=== PATIENT | female | born 1965 | race Caucasian/White ===

== ENCOUNTER 2016-04-29 13:50 | Emergency (ER) | payer MEDICAID ==
--- NOTE | 2016-04-29 14:10 | ER Document Report ---
ED Medical Screen (RME) - General Stated Complaint: HIP, LEG, FEET PAIN Notes: 50 yo female c/o chronic hip pain x several years, increased pain recently due to prolonged walking. new job, works in housekeeping at [employer]. no fever. no bowel/bladder change. burning sensation to bilat greater trochanter TRAVEL OUTSIDE OF THE [place] IN LAST 30 DAYS: No - Related Data Allergies/Adverse Reactions: No Known Allergies Allergy (Verified 04/29/16 14:07) Past Medical History Psychiatric Medical History: Reports: Hx Bipolar Disorder Physical Exam - Vital signs Vitals: Temp Pulse Resp BP Pulse Ox 98.0 F 81 14 99/59 L 99 04/29/16 13:55 04/29/16 13:55 04/29/16 13:55 04/29/16 13:55 04/29/16 13:55 Course - Vital Signs Vital signs: Temp Pulse Resp BP Pulse Ox 98.0 F 81 14 99/59 L 99 04/29/16 13:55 04/29/16 13:55 04/29/16 13:55 04/29/16 13:55 04/29/16 13:55
--- NOTE | 2016-04-29 15:35 | ER Document Report ---
HPI - HPI Patient complains to provider of: chronic hip pain Onset: Other - 6 years Onset/Duration: Persistent Quality of pain: Achy Severity: Severe Pain Level: 4 Context: Patient presents to the emergency department with complaints of bilateral hip pain. Patient reports she's had hip pain for over 6 years. She reports she's been evaluated by her primary care provider for this physician in the past. She reports she's been to physical therapy for the pain. She denies trauma. She reports she recently started working at the [employer] approximately one month ago. She reports her hips are hurting from all the walking. She walks from the parking lot into the hospital, works and walks back to her car. She denies other symptoms such as fever vomiting diarrhea. She denies pain with void. She reports she had to leave work today because she was hurting so bad. Patient ambulating around the emergency department without a limp without problems. She tried to get an appointment with her primary care today but was unable to obtain one. She does have an appointment scheduled May 04. Associated Symptoms: None Exacerbated by: Walking Relieved by: Denies Similar symptoms previously: Yes Recently seen / treated by doctor: No - CARDIOVASCULAR Cardiovascular: DENIES: Chest pain - REPRODUCTIVE LMP: hysterectomy - DERM Skin Color: Normal Past Medical History - General Information source: Patient - Social History Smoking Status: Current Every Day Smoker Chew tobacco use (# tins/day): Yes - 1ppd Frequency of alcohol use: None Drug Abuse: None Lives with: Family Family History: CAD, CVA, Hypertension Patient has suicidal ideation: No Patient has homicidal ideation: No - Medical History Medical History: Negative Renal/ Medical History: Denies: Hx Peritoneal Dialysis Psychiatric Medical History: Reports: Hx Bipolar Disorder Past Surgical History: Reports: Hx Section - Immunizations Hx Diphtheria, Pertussis, Tetanus Vaccination: Yes Vertical Provider Document - CONSTITUTIONAL Agree With Documented VS: Yes Exam Limitations: No Limitations General Appearance: WD/WN, No Apparent Distress - INFECTION CONTROL TRAVEL OUTSIDE OF THE [place] IN LAST 30 DAYS: No - HEENT HEENT: Atraumatic, Normocephalic - NECK Neck: Normal Inspection, Supple. negative: Lymphadenopathy-Left, Lymphadenopathy-Right - RESPIRATORY Respiratory: Breath Sounds Normal, No Respiratory Distress O2 Sat by Pulse Oximetry: 99 - CARDIOVASCULAR Cardiovascular: Regular Rate - GI/ABDOMEN Gastrointestinal: Abdomen Soft, Abdomen Non-Tender - MUSCULOSKELETAL/EXTREMETIES Musculoskeletal/Extremeties: MAEW, FROM, Tender - bilateral hip pain, ambulates without limp without wincing, FROM - NEURO Level of Consciousness: Awake, Alert, Appropriate Motor/Sensory: No Motor Deficit - DERM Integumentary: Warm, Dry Adult Front & Back Diagram: 1 - C/O ACHY Course - Re-evaluation Re-evalutation: 04/29/16 Patient does have a primary care provider in an appointment with them on May 04. She was instructed on the importance of follow-up to discuss chronic pain and chronic pain control. Patient was also instructed on yoga AND other different ways to take care of chronic pain she verbalizes to - Vital Signs Vital signs: Temp Pulse Resp BP Pulse Ox 98.0 F 81 14 99/59 L 99 04/29/16 13:55 04/29/16 13:55 04/29/16 13:55 04/29/16 13:55 04/29/16 13:55 Discharge - Discharge Clinical Impression: chronic bilateral hip pain Condition: Stable Disposition: HOME, SELF-CARE Instructions: Anti-Inflammatory Medication ([facility]) Additional Instructions: *You have been evaluated for chronic bilateral hip pain *Take medication as prescribed *Follow up with your primary care provider as scheduled *Return to ED for worsening condition, changes, needs Prescriptions: Naproxen 500 mg PO BID #20 tablet Forms: Return to Work Referrals: RYLAND COLLINS MD [Primary Care Provider] - Follow up as needed
[2016-04-29 15:45] VITALS: BP 112/59
== END 2016-04-29 15:50 | disposition home or self-care (01) ==
LOC: ER 13:50
DX: G89.29 Other chronic pain (principal); M25.552 Pain in left hip; M25.551 Pain in right hip; F17.210 Nicotine dependence, cigarettes, uncomplicated
CPT/HCPCS: 99283

== ENCOUNTER → 2016-09-17 | Outpatient (CLI) | payer OTHER, MEDICAID ==
--- NOTE | 2016-09-17 13:47 | RADIOLOGY REPORT (SQ) ---
EXAM DESCRIPTION: LUMBAR SPINE COMPLETE COMPLETED DATE/TIME: 09/17/2016 11:05 am REASON FOR STUDY: RADICULOPATHY, LUMBAR REGION M54.16 RADICULOPATHY, LUMBAR REGION COMPARISON: Two-view chest 02/07/2016 NUMBER OF VIEWS: Five views including obliques. TECHNIQUE: AP, lateral, oblique, and sacral radiographic images acquired of the lumbar spine. LIMITATIONS: None. FINDINGS: MINERALIZATION: Osteopenic SEGMENTATION: Normal. No transitional anatomy. ALIGNMENT: Normal. VERTEBRAE: Maintained height. No fracture or worrisome bone lesion. DISCS: Preserved height. No significant osteophytes or end plate irregularity. POSTERIOR ELEMENTS: Pedicles and facets are intact. No pars defect or posterior arch defects. Mild bilateral facet arthropathy at L4-5 and L5-S1. HARDWARE: None in the spine. PARASPINAL SOFT TISSUES: Very heavily calcified abdominal aorta. Multiple calcified granulomata at b oth lung bases PELVIS: Intact as visualized. No fractures or worrisome bone lesions. SI joints intact. OTHER: No other significant finding. IMPRESSION: Lower lumbar facet arthropathy TECHNICAL DOCUMENTATION: JOB ID: [id number] [employer]- All Rights Reserved
== END ==
LOC: OD 10:48
PROVIDERS: ATTEND Family Medicine
DX: M54.16 Radiculopathy, lumbar region (principal)
CPT/HCPCS: 72110

== ENCOUNTER → 2016-10-19 | Outpatient (CLI) | payer OTHER, MEDICAID ==
--- NOTE | 2016-10-19 15:07 | RADIOLOGY REPORT (SQ) ---
EXAM DESCRIPTION: SOFT TISSUE NECK COMPLETED DATE/TIME: 10/19/2016 1:48 pm REASON FOR STUDY: NECK SWELLING COMPARISON: None. NUMBER OF VIEWS: Two views. TECHNIQUE: AP and lateral radiographic image of the soft tissues of the neck. LIMITATIONS: None. FINDINGS: EPIGLOTTIS: Normal. Contour normal. Aryepiglottic folds normal. PREVERTEBRAL SOFT TISSUES: Normal. No soft tissue swelling. SUBGLOTTIC AREA: Normal. No narrowing. RETROPHARYNGEAL SPACE: Normal. No soft tissue masses. BONY STRUCTURES: No significant findings. LUNG APICES: Normal. OTHER: No radiopaque foreign body. No other significant finding. IMPRESSION: NEGATIVE STUDY OF THE SOFT TISSUES OF THE NECK. TECHNICAL DOCUMENTATION: JOB ID: [id number] [employer]- All Rights Reserved
== END ==
LOC: OD 13:24
PROVIDERS: ATTEND Nurse Practitioner Acute Care
DX: R22.1 Localized swelling, mass and lump, neck (principal)
CPT/HCPCS: 70360

== ENCOUNTER → 2017-04-26 | Outpatient (CLI) | payer OTHER, MEDICAID ==
--- NOTE | 2017-04-26 11:06 | RADIOLOGY REPORT (SQ) ---
EXAM DESCRIPTION: CHEST PA/LATERAL COMPLETED DATE/TIME: 04/26/2017 9:56 am REASON FOR STUDY: COUGH COMPARISON: None. EXAM PARAMETERS: NUMBER OF VIEWS: two views TECHNIQUE: Digital Frontal and Lateral radiographic views of the chest acquired. RADIATION DOSE: NA LIMITATIONS: none FINDINGS: LUNGS AND PLEURA: Parenchymal opacity identified at the left lung base. Right lung is toño ar. Diffuse calcified granulomata. MEDIASTINUM AND HILAR STRUCTURES: No masses or contour abnormalities. HEART AND VASCULAR STRUCTURES: Heart normal size. No evidence for failure. BONES: No acute findings. HARDWARE: None in the chest. OTHER: No other significant finding. IMPRESSION: Left lower lobe pneumonia. Stable calcified granulomata. TECHNICAL DOCUMENTATION: JOB ID: [id number] [employer]- All Rights Reserved
== END ==
LOC: OD 09:38
PROVIDERS: ATTEND Family Medicine
DX: R05 Cough (principal)
CPT/HCPCS: 71046

== ENCOUNTER → 2019-06-22 | Outpatient (CLI) | payer OTHER ==
--- NOTE | 2019-06-22 11:33 | RADIOLOGY REPORT (SQ) ---
EXAM DESCRIPTION: HIPS BILATERAL IMAGES COMPLETED DATE/TIME: 06/22/2019 11:14 am REASON FOR STUDY: BILAT HIP PAIN M25.551 PAIN IN RIGHT HIP M25.552 PAIN IN LEFT HIP COMPARISON: None. NUMBER OF VIEWS: Two views TECHNIQUE: AP pelvis and additional frog-leg view of both hips. LIMITATIONS: None. FINDINGS: MINERALIZATION: Normal. HIPS: No acute fracture or dislocation. No worrisome bone lesions. PELVIS AND SACRUM: No acute fracture or dislocation. No worrisome bone lesions. PUBIS AND ISCHIUM: No acute fracture. LOWER LUMBAR SPINE: No significant findings as visualized. SOFT TISSUES: No findings. OTHER: No other significant finding. IMPRESSION: NEGATIVE STUDY OF THE PELVIS AND HIPS. TECHNICAL DOCUMENTATION: JOB ID: [id number] 2010 [employer]- All Rights Reserved Reading location - IP/workstation name: [email or web address]
== END ==
LOC: OD 10:57
PROVIDERS: ATTEND Family Medicine
DX: M25.551 Pain in right hip (principal); M25.552 Pain in left hip
CPT/HCPCS: 73522

== ENCOUNTER → 2019-10-03 | Outpatient (CLI) | payer OTHER ==
[2019-10-03 14:17] VITALS: BP 121/77
--- NOTE | 2019-10-03 14:17 | ER RDC ASSESSMENT REPORT ---
Intake - In the Last 14 days Have you traveled outside [place]?: No Have you been in close contact with someone CONFIRMED: No Worked in Healthcare?: No - Symptoms Subjective Fever([place] feverish): Yes Chills: Yes Muscule Aches: Yes Runny Nose: No Sore Throat: No Cough (New or worsening chronic cough): No Shortness of breath: No Nausea or Vomiting: No Headache: Yes Abdominal Pain: Yes Diarrhea(3 or more loose stools in last 24 hours): Yes - Do you have any of the following Chronic lung disease: Asthma or emphysema or COPD: No Cystic Fibrosis: No Diabetes: No High Blood Pressure: No Cardiovascular Disease: No Chronic Kidney Disease: No Chronic Liver Disease: No Chronic blood disorder like Sickle Cell Disease: No Weak immune system due to disease or medication: No Neurologic condition that limits movement: No Developmental delay - Moderate to Severe: No Recent (within past 2 weeks) or current : No Morbid Obesity (>100 pounds over ideal weight): No - Objective Vital Signs: 5'0", 122 lb Temperature: 98.2 F Pulse Rate: 74 Respiratory Rate: 18 Blood Pressure: 121/77 O2 Sat by Pulse Oximetry: 100 Objective: Given above, testing performed: flu, covid Disposition: Home; Selfcare General - General Chief Complaint: Flu Symptoms Time Seen by Provider: 10/03/19 14:05 Mode of Arrival: Ambulatory Information source: Patient - HPI Notes: 53-year-old female presents to [facility] clinic for COVID-19 testing. 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 She reports onset of symptoms 09/29/2019 she is complaining of myalgia, subjective fever, chills, postnasal drip, nausea, headache, and intermittent cramping and diarrhea. Additionally notes decreased sense of taste. She denies any cough, shortness of breath, sore throat. She states she is currently on amoxicillin for sinus infection that was prescribed by PCP. - Related Data Allergies/Adverse Reactions: No Known Allergies Allergy (Verified 04/29/16 14:07) Home Medications: Amoxicillin Depakote Celexa gabapentin meloxicam Past Medical History - General Information source: Patient - Social History Smoking Status: Current Every Day Smoker Cigarette use (# per day): Yes - 20 Family History: CAD, CVA, Hypertension - Past Medical History Cardiac Medical History: Reports: None Pulmonary Medical History: Reports: None EENT Medical History: Reports: None Neurological Medical History: Reports: None Endocrine Medical History: Reports: None Renal/ Medical History: Reports: None. Denies: Hx Peritoneal Dialysis Malignancy Medical History: Reports: None GI Medical History: Reports: None Musculoskeletal Medical History: Reports None Skin Medical History: Reports None Psychiatric Medical History: Reports: Hx Bipolar Disorder Traumatic Medical History: Reports: None Infectious Medical History: Reports: None Past Surgical History: Reports: Hx Section, Hx Hysterectomy, Hx Tubal Ligation Physical Exam - General General appearance: Appears well, Alert In distress: None Notes: PHYSICAL EXAMINATION: GENERAL: Well-appearing and in no acute distress. HEAD: Atraumatic, normocephalic. EYES: sclera anicteric, conjunctiva are normal. ENT: nares patent. Moist mucous membranes. NECK: Normal range of motion, supple without lymphadenopathy LUNGS: CTAB and equal. No wheezes rales or rhonchi. HEART: Regular rate and rhythm without murmurs ABDOMEN: Soft, nontender, normal bowel sounds, no guarding. EXTREMITIES: Normal range of motion, no pitting edema. No cyanosis. NEUROLOGICAL: Cranial nerves grossly intact. Normal speech. PSYCH: Normal mood, normal affect. SKIN: Warm, Dry, normal turgor, no rashes or lesions noted Patient Education/Counseling Counseling/Education: Patient presents with upper respiratory symptoms worrisome for possible Covid 19. Patient does not have emergency worrying symptoms such as difficulty breathing, shortness of breath, chest pain, pressure, confusion or cyanosis. Patient appears suitable for discharge as vital signs are stable and patient is nontoxic in appearance. Advised to complete full course of antibiotics as prescribed by physician. Good return precautions have been discussed with patient, patient verbalized understanding and is agreeable with discharge plan of care at this time. Guidance for worsening S/SX: As a person under investigation for Covid 19, the [facility], division of public health advises you to adhere to the following guidance until your test results are reported to you. If your test result is positive, you will receive additional information from your provider and your local health department at that time. Remain at home until you are cleared by the health provider or public health authorities. Keep a log of visitors to your home, notify any visitors to your home of your isolation status. If you plan to move to a new address or leave the county, notify the local health department in your County. Call your doctor or seek care if you have an urgent medical need. Before seeking medical care, call ahead to get instructions from the provider before arriving at the medical office clinic or hospital. Notify them that you are being tested for the virus that causes Covid 19 so that arrangements can be made, as necessary, to prevent transmission to others in the healthcare setting. Next, notify the local health department in your county. If a medical emergency arises and you need to call 911, inform the first responders that you are being tested for the virus that causes Covid 19. Next, notify the local health department in your county. RDC Discharge - Discharge Clinical Impression: Encounter for screening laboratory testing for COVID-19 virus Upper respiratory infection Qualifiers: URI type: unspecified URI Qualified Code(s): J06.9 - Acute upper respiratory infection, unspecified Condition: Good Disposition: Home; Selfcare
[2019-10-03 17:37] LABS: A TYPE INFLUENZA AG NEGATIVE (NEGATIVE); B INFLUENZA AG NEGATIVE (NEGATIVE)
== END ==
LOC: RDC 13:38
PROVIDERS: ATTEND Registered Nurse
DX: Z20.828 Contact with and (suspected) exposure to other viral communicable diseases (principal); J06.9 Acute upper respiratory infection, unspecified; R50.9 Fever, unspecified; M79.10 Myalgia, unspecified site; R51 Headache; R19.7 Diarrhea, unspecified; R09.82 Postnasal drip; R43.9 Unspecified disturbances of smell and taste; R10.9 Unspecified abdominal pain; F17.210 Nicotine dependence, cigarettes, uncomplicated
CPT/HCPCS: 87070; 87880; 87635; 87804; 99201; 99211; C9803

== ENCOUNTER → 2019-12-26 | Outpatient (CLI) | payer OTHER ==
[2019-12-26 09:25] LABS: HEMATOCRIT 39.8 % (36.0-47.0); HEMOGLOBIN 13.8 g/dL (12.0-15.5); MEAN CORPUSCULAR HEMOGLOBIN 32.8 pg (27.0-33.4); MEAN CORPUSCULAR HGB CONC 34.7 g/dL (32.0-36.0); MEAN CORPUSCULAR VOLUME 95 fl (80-97); PLATELET COUNT 317 10^3/uL (150-450); RED BLOOD COUNT 4.21 10^6/uL (3.72-5.28); RED CELL DISTRIBUTION WIDTH 14.1 % (11.5-14.0); WHITE BLOOD COUNT 6.8 10^3/uL (4.0-10.5)
[2019-12-26 09:43] LABS: ALKALINE PHOSPHATASE 55 U/L (38-126); ANION GAP 9 (5-19); ASPARTATE AMINO TRANSFERASE 23 U/L (14-36); BILIRUBIN,DIRECT 0.3 mg/dL (0.0-0.4); BILIRUBIN,TOTAL 0.3 mg/dL (0.2-1.3); BLOOD UREA NITROGEN 19 mg/dL (7-20); CALCIUM 9.7 mg/dL (8.4-10.2); CARBON DIOXIDE 24 mmol/L (22-30); CHLORIDE 103 mmol/L (98-107); CHOLESTEROL 203.48 mg/dL (0-200); GLUCOSE 82 mg/dL (75-110); POTASSIUM 4.3 mmol/L (3.6-5.0); TOTAL PROTEIN 6.6 g/dL (6.3-8.2); TRIGLYCERIDES 63 mg/dL (<150)
[2019-12-26 09:51] LABS: DIRECT LDL 121 mg/dL (<100)
[2019-12-26 09:54] LABS: ABSOLUTE LYMPHOCYTES# (MANUAL) 4.6 10^3/uL (0.5-4.7); ABSOLUTE MONOCYTES # (MANUAL) 0.3 10^3/uL (0.1-1.4); BASOPHILS % (MANUAL) 0 % (0-2); EOSINOPHILS % (MANUAL) 1 % (0-6); LYMPHOCYTES % (MANUAL) 68 % (13-45); MONOCYTES % (MANUAL) 5 % (3-13); SEGMENTED NEUTROPHILS % (MAN) 26 % (42-78); TOTAL CELLS COUNTED 100
[2019-12-26 09:55] LABS: C-REACTIVE PROTEIN < 5.0 mg/L (<10.0)
[2019-12-26 09:56] LABS: PLATELET CLUMPS PRESENT; PLATELET COMMENT ADEQUATE; RBC MORPHOLOGY COMMENT NORMO-CYTIC/CHROMIC
[2019-12-26 10:11] LABS: ERYTHROCYTE SEDIMENTATION RATE 9 mm/hr (0-30)
--- NOTE | 2019-12-26 12:29 | RADIOLOGY REPORT (SQ) ---
EXAM DESCRIPTION: HIPS BILATERAL IMAGES COMPLETED DATE/TIME: 12/26/2019 7:53 am REASON FOR STUDY: PAIN IN RT HIP R63.4 ABNORMAL WEIGHT LOSS I73.9 PERIPHERAL VASCULAR DISEASE, UNS PECIFIED M25.551 PAIN IN RIGHT HIP COMPARISON: 06/22/2019 NUMBER OF VIEWS: Two views TECHNIQUE: AP pelvis and additional frog-leg view of both hips. LIMITATIONS: None. FINDINGS: MINERALIZATION: Normal. HIPS: No acute fracture or dislocation. No worrisome bone lesions. PELVIS AND SACRUM: No acute fracture or dislocation. No worrisome bone lesions. PUBIS AND ISCHIUM: No acute fracture. LOWER LUMBAR SPINE: No significant findings as visualized. SOFT TISSUES: Extensive iliac atherosclerosis. OTHER: No other significant finding. IMPRESSION: Negative study of the pelvis and hips. Extensive iliac atherosclerosis. TECHNICAL DOCUMENTATION: JOB ID: [id number] [employer]- All Rights Reserved Reading location - IP/workstation name: [email or web address]
[2019-12-26 13:17] LABS: PATH REVIEW PATHOLOGIST REVIEWED
== END ==
LOC: OD 07:28
PROVIDERS: ATTEND Nurse Practitioner Family
DX: I73.9 Peripheral vascular disease, unspecified (principal); R63.4 Abnormal weight loss; M25.551 Pain in right hip; M25.552 Pain in left hip
CPT/HCPCS: 36415; 73522; 80053; 80061; 85025; 85652; 86140